=== PATIENT | female | born 1985 | race Caucasian/White ===

== ENCOUNTER 2017-11-10 16:54 | Emergency (ER) | payer BC ==
--- OUTSIDE RECORDS SUMMARY | 2017-11-10 16:56 | XMS REPORT | Clinical Summary ---
:1985 Author Organization [facility] Address [address] [place] [address] Care Team Providers Name Role Phone Rj Kelley MD Primary Care Provider Allergies Not on File Current Medications Not on file Active Problems Not on file Encounters Date Type Specialty Care Team Description 08/08/2017 Hospital Encounter Radiology Alysia Walls V. Disorder of ovulation 08/06/2017 Transcribe Orders Access Alysia Walls V. Disorder of ovulation (Primary Dx) after 11/09/2016 Social History Tobacco Use Types Packs/Day Years Used Date Never Assessed Sex Assigned at Date Recorded Not on file Last Filed Vital Signs Not on file Plan of Treatment Health Maintenance Due Date Last Done Comments PAP SMEAR 2008 INFLUENZA VACCINE 02/27/2018 Results [place] Hysterosalpingogram (08/08/2017 10:13 AM) Specimen Performing Laboratory [facility] [address] [place] [address] Narrative EXAMINATION:FL HYSTEROSALPINGOGRAM CLINICAL HISTORY:N83.9 Noninflammatory disorder of ovary fallopian tube and broad ligamentunspecified COMPARISON:None. TECHNIQUE:With the use of a speculum and sterile technique, a balloon- tipped catheter was placed through the cervix and into the uterus. Water-soluble contrast was injected. FLUOROSCOPIC TIME:2 spot fluoroscopic images and 0.3 minutes of fluoroscopy time FINDINGS:Uterine cavity is normal in shape without filling defects. Fallopian tubes are normal in appearance and opacify with contrast. Bilateral free spillage of contrast material into the peritoneum. IMPRESSION: Normal hysterosalpingogram. 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 TECHNIQUE: With the use of a speculum and sterile technique, a balloon-tipped catheter was placed through the cervix and into the uterus. Water-soluble contrast was injected. FLUOROSCOPIC TIME: 2 spot fluoroscopic images and 0.3 minutes of fluoroscopy time FINDINGS:Uterine cavity is normal in shape without filling defects. Fallopian tubes are normal in appearance and opacify with contrast. Bilateral free spillage of contrast material into the peritoneum. IMPRESSION: Normal hysterosalpingogram. [facility]-[id number] after 11/09/2016 Insurance Payer Benefit Plan / Group Subscriber ID Type Phone Address BCBS BCBS CHOICE PPO/FEDERAL EMPL PPO xxxxxxxxxxxx PPO y [phone] [id number]
[2017-11-10] MEDS ORDERED: TETANUS & DIPHTHERIA TOX,ADULT 0.5 ML VIAL ONE (17:04)
--- NOTE | 2017-11-10 17:06 | EDPHYS ---
Physician Documentation [facility] Name: April Newby Age: 32 yrs Sex: Female : 1985 Arrival Date: 11/10/2017 Time: 16:56 Bed 12 Private MD: ED Physician Mc Egan HPI: 11/10 17:02 This 32 yrs old Female presents to ER via Ambulatory with complaints of kb Laceration To Foot. 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 The injury was accidental. The laceration(s) is(are) located on the arch of right foot. Onset: The symptoms/episode began/occurred just prior to arrival. Associated signs and symptoms: The patient has no apparent associated signs or symptoms. The patient has not experienced similar symptoms in the past. The patient has not recently seen a physician. Pt cut right foot on part of the dry cans operator that went through her shoe approx 30 min ago. Significant other superglued the laceration shut, but they wanted to get it looked at to make sure it was ok to do that. . Historical: - Allergies: 17:00 No Known Allergies; la1 - PMHx: 17:00 None; la1 - Immunization history:: Adult Immunizations up to date. - Social history:: Smoking status: Patient/guardian denies using tobacco. ROS: 17:02 Constitutional: Negative for fever, chills, and weight loss, Cardiovascular: Negative kb for chest pain, palpitations, and edema, Respiratory: Negative for shortness of breath, cough, wheezing, and pleuritic chest pain, Abdomen/GI: Negative for abdominal pain, nausea, vomiting, diarrhea, and constipation, Neuro: Negative for headache, weakness, numbness, tingling, and seizure. 17:02 Skin: Positive for laceration(s), of the arch of right foot. Exam: 17:02 Constitutional: This is a well developed, well nourished patient who is awake, alert, kb and in no acute distress. Head/Face: Normocephalic, atraumatic. Chest/axilla: Normal chest wall appearance and motion. Nontender with no deformity. No lesions are appreciated. Cardiovascular: Regular rate and rhythm with a normal S1 and S2. No gallops, murmurs, or rubs. Normal PMI, no JVD. No pulse deficits. Respiratory: Lungs have equal breath sounds bilaterally, clear to auscultation and percussion. No rales, rhonchi or wheezes noted. No increased work of breathing, no retractions or nasal flaring. Abdomen/GI: Soft, non-tender, with normal bowel sounds. No distension or tympany. No guarding or rebound. No evidence of tenderness throughout. Neuro: Awake and alert, GCS 15, oriented to person, place, time, and situation. Cranial nerves II-XII grossly intact. Motor strength 5/5 in all extremities. Sensory grossly intact. Cerebellar exam normal. Normal gait. 17:02 Skin: injury, laceration(s), the wound is approximately 3 cm(s), of the arch of right foot, that can be described as clean, no foreign body, linear, without bleeding. Vital Signs: 17:00 BP 116 / 71; Pulse 75; Resp 16; Temp 97.4(TE); Pulse Ox 100% on R/A; Weight 116.12 kg; la1 Height 5 ft. 4 in. (162.56 cm); 17:00 Body Mass Index 43.94 (116.12 kg, 162.56 cm) la1 MDM: 17:02 Patient medically screened. kb 17:02 Data reviewed: vital signs, nurses notes. Data interpreted: Pulse oximetry: on room air kb is 100 %. Interpretation: normal. Counseling: I had a detailed discussion with the patient and/or guardian regarding: the historical points, exam findings, and any diagnostic results supporting the discharge/admit diagnosis, the need for outpatient follow up, a family practitioner, to return to the emergency department if symptoms worsen or persist or if there are any questions or concerns that arise at home. 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 Exp: la1 02/29/2020. Lot #: [id number]. } Route: IM; Site: right deltoid; 17:18 Follow up: Response: No adverse reaction iw Disposition: 18:25 Co-signature as Attending Physician, Mc Egan MD I agree with the assessment and kdr plan of care. Disposition: 11/10/17 17:06 Discharged to Home. Impression: Laceration without foreign body of foot. - Condition is Stable. - Discharge Instructions: Non-Sutured Laceration, Laceration Care, Adult, [id number]. - Medication Reconciliation Form, Thank You Letter, Antibiotic Education, Prescription Opioid Use form. - Follow up: Emergency Department; When: As needed; Reason: Worsening of condition. Follow up: Private Physician; When: 2 - 3 days; Reason: Recheck today's complaints, Continuance of care, Re-evaluation by your physician. Signatures: Sydnie Wen, ENDORSEMENT CLERK-C ENDORSEMENT CLERK-CkMc Kelly MD MD kdr Danna Magallon RN RN iw Sonny Rand RN RN la1 Corrections: (The following items were deleted from the chart) 17:05 17:02 Skin: Positive for laceration(s), of the arch of right foot, diffusely, kb kb
--- NOTE | 2017-11-10 17:06 | ER ---
Nurse's Notes [facility] Name: April Newby Age: 32 yrs Sex: Female : 1985 Arrival Date: 11/10/2017 Time: 16:56 Bed 12 Private MD: Diagnosis: Laceration without foreign body of foot Presentation: 11/10 16:59 Presenting complaint: Patient states: I stepped on a part of my physician non invasive cardiologist and it went la1 through my shoe and cut my right foot. 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 Transition of care: patient was not received from another setting of care. Complicating Factors: There are no complicating factors for this patient. Onset of symptoms was November 10, 2017. Care prior to arrival: None. 16:59 Method Of Arrival: Ambulatory la1 16:59 Acuity: ESEQUIEL 5 la1 Triage Assessment: 17:07 General: Appears in no apparent distress. Behavior is calm, cooperative. la1 Historical: - Allergies: 17:00 No Known Allergies; la1 - PMHx: 17:00 None; la1 - Immunization history:: Adult Immunizations up to date. - Social history:: Smoking status: Patient/guardian denies using tobacco. Screenin:06 Abuse screen: Denies threats or abuse. Nutritional screening: No deficits noted. la1 Tuberculosis screening: No symptoms or risk factors identified. Fall Risk None identified. Assessment: 17:06 Reassessment: Patient is alert, oriented x 3, equal unlabored respirations, skin la1 warm/dry/pink. Pain: Denies pain. Musculoskeletal: Capillary refill < 3 seconds, Range of motion: intact in all extremities. Injury Description: Laceration is clean, 0.5 to 2.5 cm long, not bleeding. Vital Signs: 17:00 BP 116 / 71; Pulse 75; Resp 16; Temp 97.4(TE); Pulse Ox 100% on R/A; Weight 116.12 kg; la1 Height 5 ft. 4 in. (162.56 cm); 17:00 Body Mass Index 43.94 (116.12 kg, 162.56 cm) la1 ED Course: 16:56 Patient arrived in ED. tw3 17:00 Triage completed. la1 17:01 Arm band placed on right wrist. la1 17:02 Sydnie Wen FNP-C is [facility]. kb 17:02 Mc Egan MD is Attending Physician. kb 17:06 Sonny Rand, RN is Primary Nurse. la1 17:07 Call light in reach. la1 17:07 No provider procedures requiring assistance completed. Patient did not have IV access la1 during this emergency room visit. Administered Medications: 17:07 Drug: Tetanus-Diphtheria Toxoid Adult 0.5 ml {It Communications Specialist: [employer]. Exp: la1 02/29/2020. Lot #: [id number]. } Route: IM; Site: right deltoid; 17:18 Follow up: Response: No adverse reaction iw Outcome: 17:06 Discharge ordered by . kb 17:07 Discharged to home ambulatory. la1 17:07 Condition: stable 17:07 Discharge instructions given to patient, Instructed on discharge instructions, follow up and referral plans. Demonstrated understanding of instructions, follow-up care. 17:17 Patient left the ED. iw Signatures: Sydnie Wen FNP-C FNP-Danna Ly RN RN iw Sonny Rand RN RN la1 Chanel Butt tw3
[2017-11-10 17:21] VITALS: BP 116/71; TEMP 97.4; O2SAT 100
== END 2017-11-10 17:17 | disposition home or self-care (01) ==
LOC: ER 16:54
DX: S91.311A Laceration without foreign body, right foot, initial encounter (principal); W31.89XA Contact with other specified machinery, initial encounter; Y93.9 Activity, unspecified; Y92.009 Unspecified place in unspecified non-institutional (private) residence as the place of occurrence of the external cause; Z23 Encounter for immunization
CPT/HCPCS: 90714; 99283

== ENCOUNTER 2017-12-05 09:25 | Day surgery (SDC) | payer BC ==
--- OUTSIDE RECORDS SUMMARY | 2017-12-05 09:27 | XMS REPORT | Clinical Summary ---
:1985 Author Organization [facility] Address [address] [place] [address] Care Team Providers Name Role Phone Rj Kelley MD Primary Care Provider Allergies Not on File Current Medications Not on file Active Problems Not on file Encounters Date Type Specialty Care Team Description 08/08/2017 Hospital Encounter Radiology Alysia Walls V. Disorder of ovulation 08/06/2017 Transcribe Orders Access Alysia Walls V. Disorder of ovulation (Primary Dx) after 12/04/2016 Social History Tobacco Use Types Packs/Day Years Used Date Never Assessed Sex Assigned at Date Recorded Not on file Last Filed Vital Signs Not on file Plan of Treatment Health Maintenance Due Date Last Done Comments PAP SMEAR 2008 INFLUENZA VACCINE 02/27/2018 Results [place] Hysterosalpingogram (08/08/2017 10:13 AM) Specimen Performing Laboratory [facility] [address] [place] [address] Narrative EXAMINATION:[place] HYSTEROSALPINGOGRAM CLINICAL HISTORY:N83.9 Noninflammatory disorder [...] material into the peritoneum. IMPRESSION: Normal hysterosalpingogram. 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 IMPRESSION: Normal hysterosalpingogram. [facility]-[id number] after 12/04/2016 Insurance Payer Benefit Plan / Group Subscriber ID Type Phone Address BCBS BCBS CHOICE PPO/FEDERAL EMPL PPO xxxxxxxxxxxx PPO y [phone] [address]
[2017-12-05] MEDS ORDERED: Ringers Lactate 1,000 ML IV ONE (09:46)
[2017-12-05 09:55] LABS: Specific Gravity 1.015 (1.005-1.030)
[2017-12-05] MEDS ORDERED: BUPIVACA 0.25%/EPI 0.0005%/PF 30 ML VIAL ONE (10:10)
[2017-12-05] MEDS ORDERED: PROPOFOL 200 MG/20 ML VIAL IV ONE (10:46)
[2017-12-05] MEDS ORDERED: MIDAZOLAM HCL 2 MG/2 ML INJ ONE (10:47)
[2017-12-05] MEDS ORDERED: FENTANYL CITR 100 MCG/2 ML ONE (10:47)
[2017-12-05] MEDS ORDERED: LIDOCAINE 2% MPF 5 ML VIAL ONE (10:51)
[2017-12-05] MEDS ORDERED: ONDANSETRON 4 MG/2 ML VIAL ONE (10:51)
[2017-12-05] MEDS: CEFAZOLIN/SWI 2gm 2 GM/20 ML SYR IV SCH ×2 (10:52→11:11)
--- NOTE | 2017-12-05 11:52 | P.OP ---
Preoperative diagnosis: RIGHT axillary hydrainitis Postoperative diagnosis: RIGHT axillary hydrainitis Primary procedure: Wide Local excsion of RIGHT axillary hydrainitis Anesthesia: GETA + Local Estimated blood loss: <10cc Specimen: Right axillary skin and tissue Findings: large area of hydrainitis Complications: None Transferred to: Recovery Room Condition: Good
[2017-12-05] MEDS: MEPERIDINE HCL 50 MG/ML AMP ONE ×4 (11:57→12:18)
[2017-12-05 12:48] VITALS: BP 143/72; TEMP 97.4; O2SAT 99
[2017-12-05] MEDS ORDERED: CODEINE 30MG/APAP 300MG TAB ONE (13:20)
--- NOTE | 2017-12-06 00:10 | OP ---
Date of Procedure: 12/05/2017 Surgeon: Wojciech Foreman MD, Preoperative Diagnosis: Right axillary hidradenitis suppurativa. Postoperative Diagnosis: Right axillary hidradenitis suppurativa. Procedure Performed: Wide local excision of right axillary hidradenitis suppurativa. Anesthesia: General endotracheal plus local. Estimated Blood Loss: Less than 10 cc. Specimen: Right axillary skin and tissue. Findings: Large area of hidradenitis extending approximately the size of 8 to 9 cm oval by approxima tely 7-8 cm. Complications: None. Disposition: Transferred to recovery room in good condition. Procedure In Detail: After informed consent was obtained, the patient was brought to the operating r oom, prepped and draped in the usual sterile fashion. After adequate anesthesia was achieved, an danna ptical area of tissue was taken out using a 15-blade scalpel down to subcutaneous tissues. Electroca utery was used to dissect down through the hidradenitis tissue exposing this milky type fluid and col lections until completely removed. It was sent off for pathologic examination. The area was copious ly irrigated. Hemostasis was achieved with electrocautery with good hemostasis. I then placed Telfa miroslava in the wound as miroslava and closed the skin over the top with a 2-0 nylon in interrupted fashion . A sterile dressing was placed over top. The patient tolerated the procedure well without evidence of complication, transferred to the PACU in good condition. All counts were correct at the end of case. RACHAEL/HOPE Voice ID: [id number] Report ID: [id number]
== END 2017-12-05 13:35 | disposition home or self-care (01) ==
LOC: OR 09:25
PROVIDERS: ATTEND Surgery
PROC: 0JBD0ZZ Excision of Right Upper Arm Subcutaneous Tissue and Fascia, Open Approach (ICD-10-PCS; principal; 2017-12-05 10:45)
DX: L73.2 Hidradenitis suppurativa (principal); K50.90 Crohn's disease, unspecified, without complications; E66.9 Obesity, unspecified; Z83.3 Family history of diabetes mellitus
CPT/HCPCS: 81025; 88304; J0690; J2175; J2250; J2405; J3010

== ENCOUNTER 2020-02-19 21:11 | Emergency (ER) | payer BC, SELFPAY ==
--- OUTSIDE RECORDS SUMMARY | 2020-02-19 21:13 | XMS REPORT | Clinical Summary ---
:1985 Author Organization [facility] Address [address] [place] [address] Care Team Providers Name Role Phone Rj Kelley MD Primary Care Provider [phone] Allergies Not on File Medications Not on file Active Problems Not on file Social History Tobacco Use Types Packs/Day Years Used Date Never Assessed Sex Assigned at Date Recorded Not on file Job Start Date Occupation Industry Not on file Not on file Not on file Travel History Travel Start Travel End No recent travel history available. Last Filed Vital Signs Not on file Plan of Treatment Health Maintenance Due Date Last Done Comments CERVICAL CANCER SCREENING 2008 INFLUENZA VACCINE 02/28/2020 Results Not on fileafter 02/18/2019 Advance Directives For more information, please contact: [phone] Type Date Recorded Patient Transfer Agent Explanati on Advance Directives, Living Will and Medical Power of Steel Sash Erector
[2020-02-19] MEDS ORDERED: NA CHLORIDE 0.9% 1,000 ML ONE (21:54)
[2020-02-19] MEDS ORDERED: KETOROLAC 30 MG/ML INJ ONE (22:10)
[2020-02-19 22:23] LABS: Absolute Lymphocytes (CBC) 2.5 K/uL (0.7-4.9); Basophils % 0.9 % (0-1.3); Hematocrit 38.5 % (36.0-45.0); Lymphocytes % 32.9 % (15.3-44.8); MPV 9.9 fL (7.6-11.3); RBC Red Blood Cell Count 4.41 M/uL (3.86-4.86)
[2020-02-19 22:43] LABS: ALT/SGPT 19 U/L (12-78); AST/SGOT 14 U/L (15-37); Albumin 3.8 g/dL (3.4-5.0); Alkaline Phosphatase 79 U/L (45-117); BUN Blood Urea Nitrogen 11 mg/dL (7-18); Bicarbonate 27 mmol/L (21-32); Bilirubin Direct 0.1 mg/dL (0-0.2); Bilirubin Total 0.3 mg/dL (0.2-1.0); Creatine Phosphokinase 77 U/L (26-192); Glucose Level 122 mg/dL (74-106); Lipase 85 U/L (73-393); Potassium 3.8 mmol/L (3.5-5.1); Protein, Total 7.8 g/dL (6.4-8.2); Sodium Level 141 mmol/L (136-145); Troponin I < 0.02 ng/mL (0.0-0.045)
[2020-02-19 23:41] LABS: Urine Blood NEGATIVE (NEG); Urine Glucose NEGATIVE (NEG); Urine Protein NEGATIVE (NEG); Urine Specific Gravity 1.025 (1.005-1.030)
--- NOTE | 2020-02-20 00:21 | ER ---
Nurse's Notes [facility] Name: April Newby Age: 34 yrs Sex: Female : 1985 Arrival Date: 02/19/2020 Time: 21:13 Bed 5 Private MD: Diagnosis: Other chest pain;Headache Presentation: 02/18 21:15 Chief complaint: Patient states: "THIS MORNING MY CHEST STARTED HURTING, LONG I vc STAY IN BED ITS DOESN'T HURT TO BAD BUT WHEN I WALK IT GETS WORSE AND RADIATES TO MY THROAT.". Coronavirus screen: Patient denies a cough. Patient denies shortness of breath or difficulty breathing. Patient denies measured and/or subjective temperature greater than 100.4F prior to today's visit. Patient denies travel on a cruise ship or to a country the [facility] currently lists as an affected area. Patient denies contact with known and/or suspected case of COVID-19. Proceed with normal triage. Patient instructed to continue to wear a mask when interacting with others. Patient moved to private room, placed in contact and droplet isolation with eye protection until further assessment. Ebola Screen: No symptoms or risks identified at this time. 21:15 Method Of Arrival: Ambulatory vc 21:15 Initial Sepsis Screen: Does the patient meet any 2 criteria? No. Patient's initial vc sepsis screen is negative. Does the patient have a suspected source of infection? No. Patient's initial sepsis screen is negative. Risk Assessment: Do you want to hurt yourself or someone else? Patient reports no desire to harm self or others. Onset of symptoms was February 19, 2020 at 08:00. Care prior to arrival: None. 21:15 Acuity: ESEQUIEL 3 vc Triage Assessment: 21:15 General: Appears in no apparent distress. uncomfortable, obese, Behavior is calm, vc cooperative, appropriate for age. Pain: Complains of pain in mid-sternal area Pain radiates to neck Pain currently is 8 out of 10 on a pain scale. Pain began This morning Is intermittent, Alleviated by rest, Aggravated by increased activity. Cardiovascular: Reports chest pain, Denies nausea, shortness of breath. [employer]TER: 21:30 LMP 02/05/2020 vc Historical: - Allergies: 21:29 PENICILLINS; vc - Home Meds: 21:30 None [Active]; vc - PMHx: 21:30 None; vc - PSHx: 21:29 Tonsillectomy; ; Ovarian cyst removed; vc - Immunization history:: Adult Immunizations up to date. - Social history:: Smoking status: Patient denies any tobacco usage or history of. Screenin:31 Abuse screen: Denies threats or abuse. Nutritional screening: No deficits noted. vc Tuberculosis screening: No symptoms or risk factors identified. Fall Risk None identified. Assessment: 21:15 General: Appears in no apparent distress. uncomfortable, Behavior is calm, cooperative, jb4 appropriate for age. Pain: Complains of pain in mid-sternal area Pain does not radiate. Pain currently is 7 out of 10 on a pain scale. Quality of pain is described as sharp, Pain began this morning Is continuous, Alleviated by rest, Aggravated by increased activity. Neuro: Level of Consciousness is awake, alert, obeys commands, Oriented to person, place, time, situation. Cardiovascular: Patient's skin is warm and dry. Respiratory: Airway is patent Respiratory effort is even, unlabored, Respiratory pattern is regular, symmetrical. GI: No signs and/or symptoms were reported involving the gastrointestinal system. : No signs and/or symptoms were reported regarding the genitourinary system. EENT: No signs and/or symptoms were reported regarding the EENT system. Derm: Skin is intact, Skin is pink, warm \\T\\ dry. Musculoskeletal: Circulation, motion, and sensation intact. Range of motion: intact in all extremities. 22:15 Reassessment: Patient appears in no apparent distress at this time. Patient and/or jb4 family updated on plan of care and expected duration. Pain level reassessed. Patient is alert, oriented x 3, equal unlabored respirations, skin warm/dry/pink. 23:15 Reassessment: Patient appears in no apparent distress at this time. Patient and/or jb4 family updated on plan of care and expected duration. Pain level reassessed. Patient is alert, oriented x 3, equal unlabored respirations, skin warm/dry/pink. 23:58 Reassessment: Pt refused Covid-19 test. jb4 02/19 00:50 Reassessment: Patient appears in no apparent distress at this time. Patient is alert, rr5 oriented x 3, equal unlabored respirations, skin warm/dry/pink. discharge instruction given and explained without complaints made. Vital Signs: 02/18 21:15 BP 128 / 76; Pulse 77; Resp 17; Temp 98.9; Pulse Ox 100% on R/A; Weight 113.4 kg; vc Height 5 ft. 4 in. (162.56 cm); Pain 8/10; 22:15 BP 110 / 68; Pulse 66; Resp 16; Pulse Ox 100% on R/A; jb4 23:00 BP 106 / 53; Pulse 67; Resp 16; Pulse Ox 100% on R/A; Pain 5/10; jb4 02/19 00:34 BP 115 / 74; Pulse 60; Resp 16; Pulse Ox 99% ; rr5 02/18 21:15 Body Mass Index 42.91 (113.40 kg, 162.56 cm) vc ED Course: 02/18 21:13 Patient arrived in ED. cl3 21:15 Arm band placed on. rr5 21:23 Aj Can PA is PHCP. cp 21:23 Tim Howard MD is Attending Physician. cp 21:28 Triage completed. vc 21:30 Inserted saline lock: 20 gauge in right antecubital area, using aseptic technique. rr5 ,using aseptic technique. inserted by Jonas RAMIREZ Blood collected. 21:31 Patient has correct armband on for positive identification. Placed in gown. Bed in low vc position. Call light in reach. Warm blanket given. 21:34 Benson Tay, RN is Primary Nurse. jb4 21:50 youth nutritional monitor on. Pulse ox on. NIBP on. rr5 02/19 00:11 XRAY Chest (1 view) In Process Unspecified. EDMS 00:47 IV discontinued, intact, bleeding controlled, No redness/swelling at site. Pressure rr5 dressing applied. 00:51 No provider procedures requiring assistance completed. Patient maintains SpO2 rr5 saturation greater than 95% on room air. Administered Medications: 02/18 21:55 Drug: NS 0.9% 1000 ml Route: IV; Rate: 1 bolus; Site: right antecubital; jb4 23:10 Follow up: Response: No adverse reaction; IV Status: Completed infusion; IV Intake: rr5 1000ml 22:02 Drug: TORadol - Ketorolac 15 mg Route: IVP; Site: right antecubital; jb4 23:00 Follow up: Response: No adverse reaction rr5 02/19 00:33 Drug: Flexeril 10 mg Route: PO; rr5 00:47 Follow up: Response: No adverse reaction rr5 00:34 Drug: SOLU-Medrol 60 mg Route: IVP; Site: right forearm; rr5 00:46 Follow up: Response: No adverse reaction rr5 Intake: 02/18 23:10 IV: 1000ml; Total: 1000ml. rr5 Outcome: 02/19 00:20 Discharge ordered by MD. cp 00:52 Discharged to home ambulatory. rr5 00:52 Condition: stable 00:52 Discharge instructions given to patient, Instructed on discharge instructions, follow up and referral plans. medication usage, Demonstrated understanding of instructions, follow-up care, medications, Prescriptions given X 2. 00:52 Patient left the ED. rr5 Signatures: Dispatcher [employer] EDMS Aj Can PA PA cp Bryson, James, RN RN jb4 Joaquin Eastman RN RN rr5 Mikey Soni cl3 Judy Cordero RN RN vc
--- NOTE | 2020-02-20 00:21 | EDPHYS ---
Physician Documentation [facility] Name: April Newby Age: 34 yrs Sex: Female : 1985 Arrival Date: 02/19/2020 Time: 21:13 Bed 5 Private MD: ED Physician Tim Howard HPI: 02/18 21:41 This 34 yrs old Female presents to ER via Ambulatory with complaints of Chest cp Pain, Headache. 21:41 The patient or guardian reports chest pain that is located primarily in the substernal cp area. The pain does not radiate. 21:41 Associated signs and symptoms: Pertinent positives: headache, Pertinent negatives: cp abdominal pain, cough, diaphoresis, dizziness, lower extremity pain, lower extremity swelling, recent travel, shortness of breath, syncope, vomiting. The chest pain is described as sharp. Duration: The patient or guardian reports multiple episodes, that wax and wane. Modifying factors: the symptoms are aggravated by bending over. 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 - Social history:: Smoking status: Patient denies any tobacco usage or history of. ROS: 21:45 Constitutional: Negative for body aches, chills, fever, poor PO intake. cp 21:45 Eyes: Negative for injury, pain, redness, and discharge. cp 21:45 Cardiovascular: Positive for chest pain, of the mid-sternal area, Negative for edema, palpitations. 21:45 Respiratory: Negative for cough, shortness of breath, wheezing. 21:45 Back: Positive for pain at rest, pain with movement, of the thoracic area. 21:45 Skin: Negative for rash. 21:45 Neuro: Positive for headache, Negative for altered mental status, weakness. 21:45 All other systems are negative. cp Exam: 21:40 ECG was reviewed by the Attending Physician. cp 21:50 Constitutional: The patient appears in no acute distress, alert, awake, cp non-diaphoretic, non-toxic, well developed, well nourished, obese. 21:50 Head/Face: Normocephalic, atraumatic. cp 21:50 Eyes: Periorbital structures: appear normal, Conjunctiva: normal, no exudate, no cp injection, Sclera: no appreciated abnormality, Lids and lashes: appear normal, bilaterally. 21:50 ENT: External ear(s): are unremarkable, Nose: is normal, Mouth: Lips: moist, Oral mucosa: moist, Posterior pharynx: Airway: no evidence of obstruction, patent. 21:50 Chest/axilla: Inspection: normal, Palpation: crepitus, is not appreciated, tenderness, that is mild, of the mid-sternal area, that partially reproduces the patient's complaints. 21:50 Cardiovascular: Rate: normal, Rhythm: regular, Pulses: Pulses are 2+ in right radial artery and left radial artery. Heart sounds: murmur, not appreciated, Edema: is not appreciated, JVD: is not appreciated. 21:50 Respiratory: the patient does not display signs of respiratory distress, Respirations: normal, no use of accessory muscles, no retractions, labored breathing, is not present, Breath sounds: are clear throughout, no decreased breath sounds, no stridor, no wheezing. 21:50 Abdomen/GI: Inspection: abdomen appears normal, Palpation: abdomen is soft and non-tender, in all quadrants. 21:50 Back: pain, that is mild, of the mid back area, ROM is normal. cp 21:50 Neuro: Orientation: to person, place \T\ time. Mentation: is normal, Motor: moves all fours, strength is normal, Gait: is steady, at a normal pace, without difficulty. Vital Signs: 21:15 BP 128 / 76; Pulse 77; Resp 17; Temp 98.9; Pulse Ox 100% on R/A; Weight 113.4 kg; vc Height 5 ft. 4 in. (162.56 cm); Pain 8/10; 22:15 BP 110 / 68; Pulse 66; Resp 16; Pulse Ox 100% on R/A; jb4 23:00 BP 106 / 53; Pulse 67; Resp 16; Pulse Ox 100% on R/A; Pain 5/10; jb4 02/19 00:34 BP 115 / 74; Pulse 60; Resp 16; Pulse Ox 99% ; rr5 02/18 21:15 Body Mass Index 42.91 (113.40 kg, 162.56 cm) vc MDM: 02/18 21:27 Patient medically screened. cp 22:00 Differential diagnosis: acute pericarditis, chest wall pain, cholecystitis, cp Cholelithiasis costochondritis, esophagitis, pancreatitis, pericarditis, pleurisy, pneumonia, pneumothorax, pulmonary embolus. 02/19 00:20 Data reviewed: vital signs, nurses notes, lab test result(s), EKG, radiologic studies, cp plain films. 00:20 Test interpretation: by ED physician or midlevel provider: ECG, chest xray negative for cp infiltrates. Counseling: I had a detailed discussion with the patient and/or guardian regarding: the historical points, exam findings, and any diagnostic results supporting the discharge/admit diagnosis, lab results, radiology results, the need for outpatient follow up, a family practitioner, to return to the emergency department if symptoms worsen or persist or if there are any questions or concerns that arise at home. Special discussion: Based on the patient's history, exam, and Dx evaluation, there is no indication for emergent intervention or inpatient Tx. It is understood by the patient/guardian that if the Sx's persist or worsen they need to return immediately for re-evaluation. 02/18 21:30 Order name: Troponin I; Complete Time: 23:20 cp 02/18 23:21 Interpretation: TROP < 0.02; Reviewed. 02/18 21:30 Order name: DD; Complete Time: 22:41 02/18 22:42 Interpretation: Within normal limits: D-DIMER 342. cp 02/18 21:30 Order name: CPK; Complete Time: 23:20 cp 02/18 21:30 Order name: CBC with Diff; Complete Time: 22:41 cp 02/18 22:42 Interpretation: Reviewed. 02/18 21:30 Order name: BMP; Complete Time: 23:20 cp 02/18 23:20 Interpretation: Normal except: CL 108; GLUC 122; GFR 75. cp 02/18 21:30 Order name: LFT's; Complete Time: 23:20 cp 02/18 23:21 Interpretation: Normal except: AST 14; GLOB 4.0; A/G 1.0. cp 02/18 21:30 Order name: Lipase; Complete Time: 23:20 cp 02/18 21:48 Order name: Urine --Ancillary (enter results) tt3 02/18 21:48 Order name: Urine Dipstick--Ancillary (enter results) tt3 02/18 23:40 Order name: XRAY Chest (1 view) cp 02/18 21:30 Order name: EKG; Complete Time: 21:31 cp 02/18 21:30 Order name: EKG - Nurse/Tech; Complete Time: 21:35 cp 02/18 21:30 Order name: IV; Complete Time: 21:59 cp 02/18 21:30 Order name: Urine Dipstick-Ancillary (obtain specimen); Complete Time: 21:48 cp 02/18 21:30 Order name: Urine Test (obtain specimen); Complete Time: 21:48 cp 02/18 21:59 Order name: Document PUI#; Complete Time: 23:43 cp 02/18 21:59 Order name: Droplet/Contact Precautions; Complete Time: 23:43 cp 02/18 21:59 Order name: Notify Health Dept [phone]/ ; Complete Time: 23:43 cp 02/18 21:59 Order name: O2 Per Protocol; Complete Time: 22:13 cp EC/23 21:40 Rate is 67 beats/min. Rhythm is regular. NC interval is normal. QRS interval is normal. cp QT interval is normal. Interpreted by me. Reviewed by me. Administered Medications: 21:55 Drug: NS 0.9% 1000 ml Route: IV; Rate: 1 bolus; Site: right antecubital; jb4 23:10 Follow up: Response: No adverse reaction; IV Status: Completed infusion; IV Intake: rr5 1000ml 22:02 Drug: TORadol - Ketorolac 15 mg Route: IVP; Site: right antecubital; jb4 23:00 Follow up: Response: No adverse reaction rr5 02/19 00:33 Drug: Flexeril 10 mg Route: PO; rr5 00:47 Follow up: Response: No adverse reaction rr5 00:34 Drug: SOLU-Medrol 60 mg Route: IVP; Site: right forearm; rr5 00:46 Follow up: Response: No adverse reaction rr5 Disposition: 04:37 Co-signature as Attending Physician, Tim Howard MD. [email or web address] Disposition: 02/20/20 00:20 Discharged to Home. Impression: Other chest pain, Headache. - Condition is Stable. - Discharge Instructions: Chest Wall Pain, General Headache Without Cause. - Prescriptions for Cyclobenzaprine 10 mg Oral Tablet - take 1 tablet by ORAL route every 8 hours As needed no driving while taking medication; 15 tablet. Medrol (Antonino) 4 mg Oral Tablets, Dose Pack - take 1 tablet by ORAL route as directed - follow package instructions; 1 packet. - Medication Reconciliation Form, Thank You Letter, Antibiotic Education, Prescription Opioid Use form. - Follow up: Private Physician; When: 2 - 3 days; Reason: Worsening of condition. - Problem is new. - Symptoms have improved. Signatures: Dispatcher [employer] [facility] Aj Can PA PA cp Benson Tay, RN RN jb4 Joaquin Eastman RN RN rr5 Judy Cordero RN RN Tim Herrera MD MD [email or web address] Corrections: (The following items were deleted from the chart) 00:10 02/18 22:00 CORONAVIRUS+MR.LAB.BRZ ordered. [facility] 02/19 00:52 00:20 02/20/2020 00:20 Discharged to Home. Impression: Other chest pain; Headache. rr5 Condition is Stable. Forms are Medication Reconciliation Form, Thank You Letter, Antibiotic Education, Prescription Opioid Use. Follow up: Private Physician; When: 2 - 3 days; Reason: Worsening of condition. Problem is new. Symptoms have improved. cp
[2020-02-20] MEDS ORDERED: CYCLOBENZAPRINE 10 MG TAB ONE (00:39)
[2020-02-20] MEDS ORDERED: METHYLPREDNISOLONE 125 MG INJ ONE (00:39)
[2020-02-20 00:59] VITALS: TEMP 98.9
[2020-02-20 01:02] VITALS: BP 115/74; O2SAT 99
--- NOTE | 2020-02-20 08:25 | RAD REPORT ---
EXAM DESCRIPTION: RAD - Chest Single View - 02/20/2020 12:08 am CLINICAL HISTORY: CHEST PAIN COMPARISON: August 2015 TECHNIQUE: AP portable chest image was obtained 02/20/2020 12:08 am . FINDINGS: No focal lung parenchymal process. Interstitial markings are similar to comparison when ad justing for technique differences. Heart size is upper normal. Vasculature within normal limits. No m easurable pleural effusion and no pneumothorax. No acute bony abnormality seen. No acute aortic findi ngs suspected. IMPRESSION: No acute cardiopulmonary process.
--- NOTE | 2020-02-20 15:25 | EKG ---
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
== END 2020-02-20 00:52 | disposition home or self-care (01) ==
LOC: ER 21:11
DX: R51 Headache (principal)
CPT/HCPCS: 36415; 71045; 80048; 80076; 81003; 81025; 82550; 83690; 84484; 85025; 85379; 93005; 96361; 96374; 96375; 99285; J2930; J7030

== ENCOUNTER 2022-04-28 14:53 | Emergency (ER) | payer BC, SELFPAY ==
--- NOTE | 2022-04-28 15:43 | RAD REPORT ---
EXAM DESCRIPTION: CT - Head Brain Wo Cont - 04/28/2022 3:36 pm CLINICAL HISTORY: Migraine COMPARISON: No comparisons TECHNIQUE: All CT scans are performed using dose optimization technique as appropriate and may inclu de automated exposure control or mA/KV adjustment according to patient size. FINDINGS: No intracranial hemorrhage, hydrocephalus or extra-axial fluid collection.No areas of brai n edema or evidence of midline shift. Right maxillary sinus mucous retention cyst. The calvarium is intact. IMPRESSION: No acute intracranial abnormality.
[2022-04-28] MEDS ORDERED: KETOROLAC 30 MG/ML INJ ONE (16:42)
[2022-04-28] MEDS ORDERED: DIPHENHYDRAMINE 50 MG/ML VIAL ONE (16:42)
[2022-04-28] MEDS ORDERED: NA CHLORIDE 0.9% 1,000 ML ONE (16:43)
[2022-04-28] MEDS ORDERED: ONDANSETRON 4 MG/2 ML VIAL ONE ×2 (16:43→16:50)
--- NOTE | 2022-04-28 18:07 | ER ---
Nurse's Notes [facility] Name: April Newby Age: 36 yrs Sex: Female : 1985 Arrival Date: 04/28/2022 Time: 14:57 Bed 18 Private MD: Diagnosis: Migraine without aura, not intractable Presentation: 04/28 15:12 Chief complaint: Patient states: Pt reports she woke up with a migraine this morning, kb3 took an aspirin and went back to sleep, woke up at 0930 and headache remained with new onset right eye blurry vision. Pt reports poor vision in left eye is baseline and left eye vision is unchanged. Right eye blurryness has resolved. Pt reports associated nausea and photophobia. Coronavirus screen: Vaccine status: Patient reports being unvaccinated. Client denies travel out of the [place] in the last 14 days. Ebola Screen: Patient negative for fever greater than or equal to 101.5 degrees Fahrenheit, and additional compatible Ebola Virus Disease symptoms Patient denies exposure to infectious person. Patient denies travel to an Ebola-affected area in the 21 days before illness onset. No symptoms or risks identified at this time. Initial Sepsis Screen: Does the patient meet any 2 criteria? No. Patient's initial sepsis screen is negative. Does the patient have a suspected source of infection? No. Patient's initial sepsis screen is negative. Risk Assessment: Do you want to hurt yourself or someone else? Patient reports no desire to harm self or others. Onset of symptoms was April 28, 2022 at 09:00. 15:12 Method Of Arrival: Ambulatory [facility] 15:12 Acuity: ESEQUIEL 3 kb3 Triage Assessment: 15:16 Headache History: The patient has had previous headaches and this one is similar to kb3 previous episodes. General: Appears in no apparent distress. Behavior is calm, cooperative. Pain: Complains of pain in head Pain does not radiate. Pain currently is 10 out of 10 on a pain scale. Quality of pain is described as throbbing, Pain began 0900 Also complains of nausea, photophobia. Neuro: No deficits noted. 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 Last tetanus immunization: < 5 years ago. - Social history:: Smoking status: Patient denies any tobacco usage or history of. Screenin:40 Abuse screen: Denies threats or abuse. Denies injuries from another. Nutritional eh3 screening: No deficits noted. Tuberculosis screening: No symptoms or risk factors identified. Fall Risk None identified. Assessment: 16:40 General: Appears in no apparent distress. uncomfortable, Behavior is calm, cooperative, eh3 appropriate for age. Pain: Complains of pain in top of head Pain does not radiate. Pain currently is 7 out of 10 on a pain scale. Quality of pain is described as sharp, Pain began 1 day ago. Is continuous, Also complains of nausea, photophobia, blurred vision in right eye, has now subsided. Neuro: Level of Consciousness is awake, alert, obeys commands, Oriented to person, place, time, situation. Cardiovascular: Capillary refill < 3 seconds Patient's skin is warm and dry. Respiratory: Airway is patent Respiratory effort is even, unlabored. GI: Abdomen is round non-distended, Reports nausea. : No signs and/or symptoms were reported regarding the genitourinary system. EENT: No signs and/or symptoms were reported regarding the EENT system. Derm: No signs and/or symptoms reported regarding the dermatologic system. Musculoskeletal: Range of motion: intact in all extremities. 17:30 Reassessment: Patient and/or family updated on plan of care and expected duration. Pain eh3 level reassessed. Patient is alert, oriented x 3, equal unlabored respirations, skin warm/dry/pink. 17:45 Pain: Pain currently is 1 out of 10 on a pain scale. eh3 18:30 Reassessment: Patient and/or family updated on plan of care and expected duration. Pain eh3 level reassessed. Patient is alert, oriented x 3, equal unlabored respirations, skin warm/dry/pink. Vital Signs: 15:12 BP 122 / 69; Pulse 77; Resp 16; Temp 98.6; Pulse Ox 100% ; Weight 120.2 kg; Height 5 kb3 ft. 4 in. (162.56 cm); Pain 10/10; 16:40 BP 112 / 97; Pulse 52; Resp 18; Pulse Ox 100% on R/A; Pain 7/10; eh3 17:30 BP 113 / 63; Pulse 52; Resp 18; Pulse Ox 100% on R/A; eh3 18:30 BP 109 / 66; Pulse 64; Resp 18; Pulse Ox 100% on R/A; eh3 15:12 Body Mass Index 45.49 (120.20 kg, 162.56 cm) kb3 ED Course: 14:57 Patient arrived in ED. dt4 15:16 Triage completed. kb3 15:16 Arm band placed on right wrist. kb3 15:19 Darío Cardenas is PHCP. jl9 15:20 Mc Egan MD is Attending Physician. jl9 16:18 Tyesha Small RN is Primary Nurse. eh3 16:40 Patient has correct armband on for positive identification. Bed in low position. Call 3 light in reach. Side rails up X2. Client placed on continuous cardiac and pulse oximetry monitoring. NIBP monitoring applied. Door closed. Noise minimized. Lights dimmed. Warm blanket given. 16:48 Inserted saline lock: 20 gauge in right antecubital area, using aseptic technique. eh3 18:41 No provider procedures requiring assistance completed. IV discontinued, intact, eh3 bleeding controlled, No redness/swelling at site. Pressure dressing applied. Administered Medications: 16:52 Drug: Ketorolac 30 mg Route: IVP; Site: right antecubital; eh3 17:51 Follow up: Response: Pain is decreased 3 16:52 Drug: NS 0.9% 1000 ml Route: IV; Rate: 1000 ml; Site: right antecubital; eh3 17:51 Follow up: IV Status: Completed infusion; IV Intake: 1000ml eh3 16:53 Drug: Ondansetron 4 mg Route: IVP; Site: right antecubital; eh3 17:51 Follow up: Response: Pain is decreased 3 16:53 Drug: Benadryl (diphenhydrAMINE) 25 mg Route: IVP; Site: right antecubital; eh3 17:51 Follow up: Response: Pain is decreased 3 Medication: 18:42 VIS not applicable for this client. eh3 Intake: 17:51 IV: 1000ml; Total: 1000ml. 3 Outcome: 18:06 Discharge ordered by MD. meza 18:41 Discharged to home ambulatory, with family. 3 18:41 Condition: stable 18:41 Discharge instructions given to patient, Instructed on discharge instructions, follow up and referral plans. Demonstrated understanding of instructions, follow-up care. 18:42 Patient left the ED. 3 Signatures: yTesha Small RN RN eh3 Darío Cardenas jl9 Charley Partida, RN RN kb3 Jannette Childers dt4
--- NOTE | 2022-04-28 18:07 | EDPHYS ---
Physician Documentation [facility] Name: April Newby Age: 36 yrs Sex: Female : 1985 Arrival Date: 04/28/2022 Time: 14:57 Bed 18 Private MD: ED Physician Mc Egan HPI: 04/28 16:28 This 36 yrs old Female presents to ER via Ambulatory with complaints of jl9 migraine headache since yesterday. . 16:28 The patient complains of pain to the top of head. The patient describes the headache as jl9 pounding. Onset: The symptoms/episode began/occurred yesterday. Associated signs and symptoms: Pertinent positives: Photophobia. Severity of symptoms: in the emergency department the pain a " 7" out of "10". Headache History: The patient has had previous headaches. The symptoms are alleviated by Darkened room, the symptoms are aggravated by movement. 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 Last tetanus immunization: < 5 years ago. - Social history:: Smoking status: Patient denies any tobacco usage or history of. ROS: 16:30 Constitutional: Negative for fever, chills, and weight loss, Eyes: Negative for injury, jl9 pain, redness, and discharge, ENT: Negative for injury, pain, and discharge, Neck: Negative for injury, pain, and swelling, Cardiovascular: Negative for chest pain, palpitations, and edema, Respiratory: Negative for shortness of breath, cough, wheezing, and pleuritic chest pain, Abdomen/GI: Negative for abdominal pain, nausea, vomiting, diarrhea, and constipation, Back: Negative for injury and pain, MS/Extremity: Negative for injury and deformity, Skin: Negative for injury, rash, and discoloration. 16:30 Psych: Negative for depression, anxiety, suicide ideation, homicidal ideation, and hallucinations, Allergy/Immunology: Negative for hives, rash, and allergies, Endocrine: Negative for neck swelling, polydipsia, polyuria, polyphagia, and marked weight changes, Hematologic/Lymphatic: Negative for swollen nodes, abnormal bleeding, and unusual bruising. 16:30 Neuro: Positive for headache. Exam: 16:30 Constitutional: This is a well developed, well nourished patient who is awake, alert, jl9 and in no acute distress. Head/Face: Normocephalic, atraumatic. Eyes: Pupils equal round and reactive to light, extra-ocular motions intact. Lids and lashes normal. Conjunctiva and sclera are non-icteric and not injected. Cornea within normal limits. Periorbital areas with no swelling, redness, or edema. ENT: Mucous membranes moist. Neck: Trachea midline, no thyromegaly or masses palpated, and no cervical lymphadenopathy. Supple, full range of motion without nuchal rigidity, or vertebral point tenderness. No Meningismus. Chest/axilla: Normal chest wall appearance and motion. Nontender with no deformity. No lesions are appreciated. Cardiovascular: Regular rate and rhythm with a normal S1 and S2. No gallops, murmurs, or rubs. Normal PMI, no JVD. No pulse deficits. Respiratory: Lungs have equal breath sounds bilaterally, clear to auscultation and percussion. No rales, rhonchi or wheezes noted. No increased work of breathing, no retractions or nasal flaring. Abdomen/GI: Soft, non-tender, with normal bowel sounds. No distension or tympany. No guarding or rebound. No evidence of tenderness throughout. Back: No spinal tenderness. No costovertebral tenderness. Full range of motion. Skin: Warm, dry with normal turgor. Normal color with no rashes, no lesions, and no evidence of cellulitis. MS/ Extremity: Pulses equal, no cyanosis. Neurovascular intact. Full, normal range of motion. Neuro: Awake and alert, GCS 15, oriented to person, place, time, and situation. Cranial nerves II-XII grossly intact. Motor strength 5/5 in all extremities. Sensory grossly intact. Cerebellar exam normal. Normal gait. Psych: Awake, alert, with orientation to person, place and time. Behavior, mood, and affect are within normal limits. Vital Signs: 15:12 BP 122 / 69; Pulse 77; Resp 16; Temp 98.6; Pulse Ox 100% ; Weight 120.2 kg; Height 5 kb3 ft. 4 in. (162.56 cm); Pain 10/10; 16:40 BP 112 / 97; Pulse 52; Resp 18; Pulse Ox 100% on R/A; Pain 7/10; eh3 17:30 BP 113 / 63; Pulse 52; Resp 18; Pulse Ox 100% on R/A; eh3 18:30 BP 109 / 66; Pulse 64; Resp 18; Pulse Ox 100% on R/A; eh3 15:12 Body Mass Index 45.49 (120.20 kg, 162.56 cm) kb3 MDM: 16:20 Patient medically screened. jl9 16:30 Data reviewed: vital signs, nurses notes. 9 18:06 Counseling: I had a detailed discussion with the patient and/or guardian regarding: the [facility] historical points, exam findings, and any diagnostic results supporting the discharge/admit diagnosis, radiology results, the need for outpatient follow up, to return to the emergency department if symptoms worsen or persist or if there are any questions or concerns that arise at home. Response to treatment: the patient's symptoms have resolved after treatment, the patient's pain is gone. 04/28 15:23 Order name: CT Head Brain wo Cont jl9 04/28 15:44 Order name: CT; Complete Time: 16:49 EDMS 04/28 15:23 Order name: IV Saline Lock; Complete Time: 16:48 jl9 Administered Medications: 16:52 Drug: Ketorolac 30 mg Route: IVP; Site: right antecubital; eh3 17:51 Follow up: Response: Pain is decreased eh3 16:52 Drug: NS 0.9% 1000 ml Route: IV; Rate: 1000 ml; Site: right antecubital; eh3 17:51 Follow up: IV Status: Completed infusion; IV Intake: 1000ml eh3 16:53 Drug: Ondansetron 4 mg Route: IVP; Site: right antecubital; eh3 17:51 Follow up: Response: Pain is decreased eh3 16:53 Drug: Benadryl (diphenhydrAMINE) 25 mg Route: IVP; Site: right antecubital; eh3 17:51 Follow up: Response: Pain is decreased 3 Disposition: 19:01 Co-signature as Attending Physician, Mc Egan MD I agree with the assessment and kdr plan of care. Disposition Summary: 04/28/22 18:06 Discharge Ordered Location: Home jl9 Condition: Stable jl9 Diagnosis - Migraine without aura, not intractable jl9 Followup: jl9 - With: Private Physician - When: 1 - 2 days - Reason: Recheck today's complaints, Continuance of care, Re-evaluation by your physician Discharge Instructions: - Discharge Summary Sheet jl9 - Migraine Headache, [id number] jl9 Forms: - Medication Reconciliation Form jl9 - Thank You Letter jl9 - Antibiotic Education jl9 - Prescription Opioid Use jl9 Signatures: Dispatcher [employer] EDMS Mc Egan MD MD kdr Tyesha Small, JAMES RN 3 Darío Cardenas jl9 Charley Partida, RN RN kb3
[2022-04-29 08:14] VITALS: TEMP 98.6; O2SAT 100
[2022-04-29 08:31] VITALS: BP 109/66
== END 2022-04-28 18:42 | disposition home or self-care (01) ==
LOC: ER 14:53
DX: G43.009 Migraine without aura, not intractable, without status migrainosus (principal); Z88.0 Allergy status to penicillin
CPT/HCPCS: 96361; 70450; 96375; 96374; 99283; J1200; J7030; J2405 ×2

== ENCOUNTER 2023-06-14 09:25 | Day surgery (SDC) | payer BC ==
[2023-06-14] MEDS ORDERED: Ringers Lactate 1,000 ML IV ONE (10:05)
[2023-06-14] MEDS ORDERED: SCOPOLAMINE HYDROBROMIDE PATCH TD ONE (10:06)
[2023-06-14] MEDS ORDERED: CEFAZOLIN SODIUM 2 GM/VIAL ONE (10:13)
[2023-06-14] MEDS ORDERED: HYDROMORPHONE HCL 2 MG/ML inj ONE (10:41)
[2023-06-14] MEDS ORDERED: BUPIVACAINE 0.25% PF 30 ML VIAL ONE (10:45)
[2023-06-14] MEDS ORDERED: propofoL 200 MG/20 ML VIAL IV ONE (10:46)
[2023-06-14] MEDS ORDERED: LIDOCAINE 2% MPF 5 ML VIAL ONE (10:46)
[2023-06-14] MEDS ORDERED: MIDAZOLAM HCL 2 MG/2 ML INJ ONE (10:46)
[2023-06-14] MEDS ORDERED: dexAMETHasone 10 MG/ML VIAL ONE (11:16)
[2023-06-14] MEDS ORDERED: ONDANSETRON 4 MG/2 ML VIAL ONE (11:16)
[2023-06-14] MEDS ORDERED: METHYLENE BLUE 1% 10 ML VIAL ONE (12:05)
[2023-06-14] MEDS ORDERED: KETOROLAC 30 MG/ML INJ ONE (12:30)
[2023-06-14] MEDS ORDERED: NEOSTIGMINE 1 MG/ML -10 ML VIAL ONE (12:31)
[2023-06-14] MEDS ORDERED: GLYCOPYRROLATE 0.2 MG/ML SYR ONE (12:32)
[2023-06-14] MEDS ORDERED: Mastisol Adhesive Liq ONE (12:38)
[2023-06-14] MEDS: MEPERIDINE HCL 25 MG/ML SYR ONE ×2 (12:54→12:59)
[2023-06-14] MEDS: FENTANYL CITR 100 MCG/2 ML ONE ×2 (13:05→13:11)
[2023-06-14 13:09] VITALS: TEMP 96.9
[2023-06-14] MEDS ORDERED: PROMETHAZINE INJ 25 MG/ML AMP ONE (13:16)
[2023-06-14] MEDS ORDERED: HYDROCODONE/APAP 5/325 MG TAB ONE (14:04)
[2023-06-14 14:26] VITALS: BP 113/57; O2SAT 97
--- NOTE | 2023-06-14 23:53 | OP ---
Date of Procedure: 06/14/2023 Surgeon: Oralia Adams MD Preoperative Diagnoses: Menorrhagia, dyspareunia, pelvic pain, suspected endometriosis. Postoperative Diagnoses: Menorrhagia, dyspareunia, pelvic pain, endometriosis, and endometrial thick ening. Procedures Performed: 1.Diagnostic hysteroscopy, dilation and curettage. 2.Diagnostic laparoscopy, chromotubation, and endometriosis excision. Anesthesia: General endotracheal. Estimated Blood Loss: Minimal. Specimens: Endometriosis from the right tube, right lateral wall uterosacral ligament, left lateral wall uterosacral ligament, and endometrial curettings. Complications: No complications. Drains: No drains. Patient's Condition: Stable. Findings: Endometriosis was noted. Tiny small implants on the right lateral pelvic peritoneum later al to the ureter and the uterosacral ligament. There were tiny implants within the uterosacral ligam ent and the ureteric tunnel on the left side. On the distal right tube, there was a reddish brown im plant likely suspicious for endometriosis, which was removed and chromotubation was performed, where the right tube flushed well. In the left tube, there was no spill; however, no evidence of any scar or hydrosalpinx. It could be just that she had tubal spasm. Endometrium posteriorly thickened. No definite polyp. No abnormalities in the cavity. Indications: The patient is a 37-year-old, presented with bleeding, pelvic pain, and dyspareunia. E valuated for infections, masses. She has a 3.2 cm left ovarian cyst, which appeared to be physiologi c. Surgical history is significant for removal of an ovarian cyst in 2008 and a section in 2007. She was consented for a laparoscopy, hysteroscopy, possible endometriosis excision, possible D and C, chromotubation if there was any suspicion that the tubes could be occluded and if they were t he etiology for her pain. Procedure In Detail: After informed consent was verified, she was taken back to OR and 3 g of Ancef was given incidentally. The patient was given general anesthesia and then placed in a dorsal lithoto my position. Abdomen was prepped with ChloraPrep; vulva, vagina, and perineum with Betadine. Specul um was placed to expose the cervix. Anterior lip was grasped with single-tooth tenaculum and cervix dilated to 16-Slovenian. Diagnostic SlimLine hysteroscope used to traverse the cervical canal under dir ect vision into the uterine cavity. Posterior wall was thickened. Scope removed. D and C performed , targeted this as well as all the endometrial grimm globally, handed off for permanent pathology. S cope removed, tenaculum removed, and a diagnostic uterine manipulator introduced and fixed in place. Mcknight was placed to drain the bladder and attached to a drainage bag. An infraumbilical incision was made with the scalpel using the open laparoscopy technique. Fascia wa s incised, tagged with 0 Vicryl sutures. Peritoneum was entered bluntly. Emilia introduced and insu fflated the peritoneal cavity. Upper abdominal surface unremarkable. Lower abdominal surface has sc ar in the area. Then, endometriosis was noted on the right lateral wall of peritoneum betw een the uterosacral lateral wall and the posterior broad ligament and the ureter, and some implants t owards the uterosacral. Similar on the opposite side, but fewer implants. Posterior cul-de-sac appe ared to be slightly narrow; however, no cul-de-sac obliteration. No peritoneal lesions were noted. Uterosacral ligaments were unremarkable mostly. The tube on the left side was completely unremarkabl e. The tube on the right side with a possible implant that was excised near the cornual end. Ovarie s completely unremarkable without any cyst. #1 chromotubation to 1 ampule of methylene blue was diluted with 100 cc of normal saline and injected through the uterine cavity. That was after excision of the endometriosis on the right tube. Once t his was done, there was a good flush on the third syringe of the 20 cc of the methylene blue. Howeve r, on the left side, there was no fill or spill. There was no distortion to the uterus. Endometriosis excision: The peritoneum was dissected from the lateral wall underlying structures and it was from the distal ureter and the uterosacral ligament and vessels, and the entire per itoneum was excised. On the opposite side, peritoneal implants were excised at the level of the uret partha tunnel towards the uterosacral ligament. All those were handed out. The endometriosis of the d istal right tube was also picked up with [place] and excised with monopolar needle tip. Thorough ir rigation and suction were performed in the peritoneal cavity after full re-evaluation and no other im plants were noted. The trocars were removed under direct vision. Three 5 ports were placed, left lo wer quadrant, right lower quadrant, and suprapubic after injecting Marcaine at the fascia and the ski n, so once these were removed, the gas was desufflated. Umbilical trocar was removed. Fascia at the umbilicus closed with 0 Vicryl tag sutures, tied to each other. Skin incisions were closed with the help of interrupted 5-0 Monocryl, and uterine manipulator and Mcknight were removed. Instrument, needl e, and sponge counts were correct at the end of the case. The patient tolerated the procedure well. She was recovered from anesthesia and taken to PACU in stable condition. MARYAM/HOPE Voice ID: [id number] Report ID: [id number]
== END 2023-06-14 14:24 | disposition home or self-care (01) ==
LOC: OR 09:25
PROVIDERS: ATTEND Obstetrics & Gynecology
PROC: 0DBW4ZZ Excision of Peritoneum, Percutaneous Endoscopic Approach (ICD-10-PCS; 2023-06-14)
PROC: 3E1P88X Irrigation of Female Reproductive using Irrigating Substance, Via Natural or Artificial Opening Endoscopic, Diagnostic (ICD-10-PCS; 2023-06-14)
PROC: 0UDB8ZX Extraction of Endometrium, Via Natural or Artificial Opening Endoscopic, Diagnostic (ICD-10-PCS; principal; 2023-06-14 11:00)
DX: N80.30 Endometriosis of pelvic peritoneum, unspecified (principal); N80.201 Endometriosis of right fallopian tube, unspecified depth; N92.1 Excessive and frequent menstruation with irregular cycle; N94.12 Deep dyspareunia; R10.2 Pelvic and perineal pain; K62.89 Other specified diseases of anus and rectum; E66.01 Morbid (severe) obesity due to excess calories; R93.89 Abnormal findings on diagnostic imaging of other specified body structures; Z68.42 Body mass index [BMI] 45.0-49.9, adult
CPT/HCPCS: 88305; 58558; 58662; 58350; J2550; J2704; J2710; J2001; J2250; J1170; J3010; J1100; J2175; J2405; J7120

== ENCOUNTER 2024-10-30 08:35 | Emergency (ER) | payer BC ==
[2024-10-30] MEDS ORDERED: ACETAMINOPHEN 500 MG TAB ONE (09:41)
[2024-10-30 09:47] LABS: Absolute Eosinophils 0.1 K/uL (0-0.5); Absolute Lymphocytes (CBC) 1.4 K/uL (0.7-4.9); Absolute Monocytes 0.5 K/uL (0.1-1.3); Basophils % 0.5 % (0-1.3); Eosinophils % 0.6 % (0-4.4); Hematocrit 42.4 % (36.0-45.0); Hemoglobin 14.4 g/dL (12.0-15.0); Lymphocytes % 15.3 % (15.3-44.8); MCH 29.2 pg (27.0-35.0); MCV 86.1 fL (80-100); MPV 8.3 fL (7.6-11.3); Monocytes % 5.1 % (3.3-12.3); Neutrophils % 78.5 % (41.7-73.7); Nucleated Red Blood Cells % 0.1 % (0-0); Platelets 319 thou/uL (152-406); RBC Red Blood Cell Count 4.92 M/uL (3.86-4.86); Red Cell Distribution Width 13.1 % (12.1-15.2)
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
[2024-10-30 10:03] LABS: Anion Gap 7.9 mEq/L (5.0-15.0); Potassium 3.9 mEq/L (3.5-5.1); Troponin High Sensitivity 15.1 pg/mL (<58.9)
--- NOTE | 2024-10-30 10:10 | RAD REPORT ---
EXAMINATION: THORACIC SPINE 3 VIEWS CLINICAL INDICATION: Female, 39 years old. PAIN TECHNIQUE: AP, lateral views of the thoracic spine were obtained. COMPARISON: No prior exam. FINDINGS: ALIGNMENT: The thoracic spine has normal alignment. BONES: Vertebral body heights are maintained. No aggressive osseous lesions. DISCS: Disc heights are maintained. SOFT TISSUE: No soft tissue abnormalities. IMPRESSION: No acute thoracic spine abnormality.
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
--- NOTE | 2024-10-30 10:11 | RAD REPORT ---
EXAMINATION: LUMBAR SPINE MULTIPLE VIEWS CLINICAL INDICATION: Female, 39 years old. PAIN TECHNIQUE: Multiple views of the lumbar spine were obtained. COMPARISON: No prior exam. FINDINGS: For purposes of this dictation, it is assumed that there are 5 lumbar type vertebral bodies. ALIGNMENT: There is normal alignment of the lumbar spine. BONES: Vertebral bodies are normal in height. No aggressive osseous lesions. DISCS: Mild disc thinning at L5-S1. IMPRESSION: No acute lumbar spine abnormality.
[2024-10-30] MEDS ORDERED: methocarbamoL 750 MG TAB ONE (10:36)
[2024-10-30] MEDS ORDERED: TRAMADOL HCL 50 MG TAB ONE (10:37)
[2024-10-30 12:41] LABS: Troponin High Sensitivity 17.7 pg/mL (<58.9)
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
[2024-10-30 13:19] LABS: Specific Gravity 1.012 (1.005-1.030); Urine Bacteria <20 /HPF (<20); Urine Bilirubin NEGATIVE (Negative); Urine Blood Trace (Negative); Urine Clarity Extremely Turbid (Clear); Urine Color Colorless (Yellow); Urine Culture Reflex Order NOT NEEDED; Urine Glucose NEGATIVE (Negative); Urine Ketones 1+ (Negative); Urine Microscopic Reflex YN ORDER UMIC; Urine Mucus Slight /HPF (None Seen); Urine Nitrite NEGATIVE (Negative); Urine Protein NEGATIVE (Negative); Urine RBC <5 /HPF (None Seen); Urine Urobilinogen Normal (Normal); Urine WBC <5 /HPF (<5)
[2024-10-30 13:25] LABS: Specific Gravity 1.012 (1.005-1.030)
[2024-10-30] MEDS ORDERED: FENTANYL CITR 100 MCG/2 ML ONE (13:36)
[2024-10-30] MEDS ORDERED: KETOROLAC 30 MG/ML INJ ONE (13:36)
[2024-10-30] MEDS ORDERED: NA CHLORIDE 0.9% 500 ML ONE (13:37)
[2024-10-30 14:55] VITALS: TEMP 98.5
[2024-10-30 15:00] VITALS: BP 120/65; O2SAT 99
--- NOTE | 2024-10-31 13:26 | EKG ---
Test Date: 2024-10-30 Test Time: 10:19:16 Assistant Director Of Financial Aid: LINNEA MEASUREMENT RESULTS: Intervals: Rate: 93 CA: 122 QRSD: 80 QT: 352 QTc: 437 [place]: P: 34 CA: 122 QRS: -5 T: 31 INTERPRETIVE STATEMENTS: Normal sinus rhythm Minimal voltage criteria for LVH, may be normal variant Borderline ECG Compared to ECG 02/19/2020 21:32:03 Sinus arrhythmia no longer present Electronically Signed On 10-31-24 13:19:15 CDT by Brayan Brunson
== END 2024-10-30 14:30 | disposition home or self-care (01) ==
LOC: ER 08:35
DX: R55 Syncope and collapse (principal); R51.9 Headache, unspecified; M54.50 Low back pain, unspecified; S50.811A Abrasion of right forearm, initial encounter
CPT/HCPCS: 96361; 93005; 85025; 81001; 80048; 36415; 81025; 84484 ×2; 83880; 70450; 72125; 71045; 72100; 72070; 96375; 96374; 99285; J3010; J7040

== ENCOUNTER 2024-12-13 01:00 | Emergency (ER) | payer BC ==
--- NOTE | 2024-12-13 01:27 | ER ---
Nurse's Notes [facility] Name: April Newby Age: 39 yrs Sex: Female : 1985 Arrival Date: 12/13/2024 Time: 01:00 Bed IW1 Private MD: Diagnosis: Other seizures Presentation: 12/13 01:17 Chief complaint: Patient states: had a witnessed seizure by son at around [id number]. al5 son states seizure lasted about 2 minutes and took about 1 min 30 sec to recover back to aaox4. denies headstrike. Coronavirus screen: At this time, the client does not indicate any symptoms associated with coronavirus-19. Ebola Screen: No symptoms or risks identified at this time. Initial Sepsis Screen: Does the patient meet any 2 criteria? No. Patient's initial sepsis screen is negative. Does the patient have a suspected source of infection? No. Patient's initial sepsis screen is negative. Risk Assessment: Do you want to hurt yourself or someone else? Patient reports no desire to harm self or others. Onset of symptoms was December 13, 2024. 01:17 Method Of Arrival: Wheelchair al5 01:17 Acuity: ESEQUIEL 3 al5 Triage Assessment: 01:19 General: Appears in no apparent distress. comfortable, Behavior is calm, cooperative. al5 Pain: Denies pain. EENT: No signs and/or symptoms were reported regarding the EENT system. Neuro: Level of Consciousness is awake, alert, obeys commands, Oriented to person, place, time, situation. Cardiovascular: Capillary refill < 3 seconds Patient's skin is warm and dry. Respiratory: Airway is patent Respiratory effort is even, unlabored, Respiratory pattern is regular, symmetrical. GI: No signs and/or symptoms were reported involving the gastrointestinal system. : No signs and/or symptoms were reported regarding the genitourinary system. Derm: Skin is intact, is healthy with good turgor, Skin is pink, warm \T\ dry. normal. Musculoskeletal: No signs and/or symptoms reported regarding the musculoskeletal system. 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 - Infectious Disease History:: Denies. - Social history:: Smoking status: Patient denies any tobacco usage or history of. Screenin: [facility] ED Fall Risk Assessment (Adult) History of falling in the last 3 months, al5 including since admission No falls in past 3 months (0 pts) Confusion or Disorientation No (0 pts) Intoxicated or Sedated No (0 pts) Impaired Gait No (0 pts) Mobility Assist Device Used No (0 pt) Altered Elimination No (0 pt) Score/Fall Risk Level 0 - 2 = Low Risk Oriented to surroundings, Maintained a safe environment, Hourly rounding (assess needs \T\ fall precautionary measures) done. Abuse screen: Denies threats or abuse. Denies injuries from another. Nutritional screening: No deficits noted. Tuberculosis screening: No symptoms or risk factors identified. Assessment: :22 Reassessment: see triage assessment. al5 Vital Signs: 01:17 BP 115 / 60; Pulse 70; Resp 18; Temp 98.4; Pulse Ox 100% on R/A; Weight 74.84 kg; al5 Height 5 ft. 4 in. ; 01:17 Body Mass Index 28.32 (74.84 kg, 162.56 cm) al5 [place] Coma Score: 01:19 Eye Response: spontaneous(4). Motor Response: obeys commands(6). Verbal Response: al5 oriented(5). Total: 15. ED Course: 01:08 Patient arrived in ED. gm2 01:09 Charles Torres DO is Attending Physician. ms3 01:19 Triage completed. al5 01:19 Arm band placed on right wrist. Patient placed in the treatment room, in view of staff al5 members, Patient notified of wait time. 01:22 Patient has correct armband on for positive identification. Provided Education on: al5 medications. :22 No provider procedures requiring assistance completed. al5 01:27 Livan Moctezuma MD is Referral Physician. ms3 01:30 Madalyn Saucedo RN is Primary Nurse. al5 01:30 Patient did not have IV access during this emergency room visit. al5 Administered Medications: No medications were administered Medication: : VIS not applicable for this client. al5 Outcome: 01:27 Discharge ordered by . ms3 01:30 Discharged to home ambulatory, with family, al5 01:30 Condition: good 01:30 Discharge instructions given to patient, Instructed on discharge instructions, follow up and referral plans. Demonstrated understanding of instructions, follow-up care, 01:30 Patient left the ED. al5 Signatures: Charles Torres DO DO ms3 Reba Urias gm2 Madalyn Saucedo, RN RN al5
--- NOTE | 2024-12-13 01:27 | EDPHYS ---
Physician Documentation [facility] Name: April Newby Age: 39 yrs Sex: Female : 1985 Arrival Date: 12/13/2024 Time: 01:00 Bed IW1 Private MD: ED Physician Charles Torres HPI: 12/13 01:27 This 39 yrs old Female presents to ER via Wheelchair with complaints of Seizure. ms3 01:27 39-year-old female with past medical history of endometriosis, migraine presents the [facility] emergency department via [facility] for seizure. The seizure was described as tonic-clonic. Patient is currently on Keppra twice a day. Patient states he took her Keppra approximately 4 to 5 hours late tonight. Seizure lasted approximately 2 minutes and patient returned to baseline within 1 minute and 30 seconds according to patient's son.. 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 - Infectious Disease History:: Denies. - Social history:: Smoking status: Patient denies any tobacco usage or history of. ROS: 01:27 Constitutional: Negative for fever, and chills. Cardiovascular: Negative for chest ms3 pain, and palpitations. Respiratory: Negative for shortness of breath, cough, wheezing, and pleuritic chest pain, Abdomen/GI: Negative for abdominal pain, nausea, vomiting, diarrhea, and constipation, MS/Extremity: Negative for injury and deformity, Skin: Negative for injury, rash, and discoloration, : Neuro: Positive for headache, seizure activity, Exam: : Constitutional: This is a well developed, well nourished patient who is awake, alert, ms3 and in no acute distress. Cardiovascular: Regular rate and rhythm with a normal S1 and S2. No gallops, murmurs, or rubs. Normal PMI, no JVD. No pulse deficits. Respiratory: Lungs have equal breath sounds bilaterally, clear to auscultation and percussion. No rales, rhonchi or wheezes noted. No increased work of breathing, no retractions or nasal flaring. Abdomen/GI: Soft, non-tender, with normal bowel sounds. No distension or tympany. No guarding or rebound. No evidence of tenderness throughout. Skin: Warm, dry with normal turgor. Normal color with no rashes, no lesions, and no evidence of cellulitis. MS/ Extremity: Pulses equal, no cyanosis. Neurovascular intact. Full, normal range of motion. Neuro: Awake and alert, GCS 15, oriented to person, place, time, and situation. Cranial nerves II-XII grossly intact. Motor strength 5/5 in all extremities. Sensory grossly intact. Cerebellar exam normal. Normal gait. Vital Signs: 01:17 BP 115 / 60; Pulse 70; Resp 18; Temp 98.4; Pulse Ox 100% on R/A; Weight 74.84 kg; al5 Height 5 ft. 4 in. ; 01:17 Body Mass Index 28.32 (74.84 kg, 162.56 cm) al5 [place] Coma Score: 01:19 Eye Response: spontaneous(4). Motor Response: obeys commands(6). Verbal Response: al5 oriented(5). Total: 15. MDM: 01:26 Medical Screening Exam initiated ms3 01:27 Differential diagnosis: seizure. Data reviewed: vital signs, nurses notes, and as a ms3 result, I will discharge patient. Historians other than the Patient: EMS: [facility]. Parent: Patient's mother. Daughter/Son: Patient's son. Counseling: I had a detailed discussion with the patient and/or guardian regarding the historical points, exam findings, and any diagnostic results supporting the discharge/admit diagnosis, the need for outpatient follow up, to return to the emergency department if symptoms worsen or persist or if there are any questions or concerns that arise at home. Special discussion: I discussed with the patient/guardian in detail that at this point there is no indication for admission to the hospital. It is understood, however, that if the symptoms persist or worsen the patient needs to return immediately for re-evaluation. ED course: Patient states she has recently had 2 CTs of her head that were negative. Patient has returned to baseline, is alert and orient x 4, no apparent distress, nontoxic-appearing, speaking full sentences. Patient to follow-up with neurology in 2 to 3 days. Patient understands and agrees with plan. All questions were answered. Return precautions discussed include worsening symptoms, or any other concerns. Administered Medications: No medications were administered Disposition Summary: 12/13/24 01:27 Discharge Ordered Notes: Location: Home ms3 Condition: Stable ms3 Diagnosis - Other seizures ms3 Followup: ms3 - With: Livan Moctezuma MD - When: 2 - 3 days - Reason: Recheck today's complaints Discharge Instructions: - Discharge Summary Sheet ms3 - Seizure, Adult ms3 Forms: - Medication Reconciliation Form ms3 - Antibiotic Education ms3 - Prescription Opioid Use ms3 - Patient Portal Instructions ms3 - Leadership Thank You Letter ms3 Signatures: Charles Torres DO DO ms3 Madalyn Saucedo RN RN al5
[2024-12-13 01:35] VITALS: BP 115/60; TEMP 98.4; O2SAT 100
== END 2024-12-13 01:30 | disposition home or self-care (01) ==
LOC: ER 01:00
DX: G40.89 Other seizures (principal)
CPT/HCPCS: 99282